=== PATIENT | female | born 2000 | race Hispanic/Latino ===

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

== ENCOUNTER 2025-02-12 12:51 | Outpatient (CLI) | payer OTHER, BC | END 2025-02-12 12:52 | disposition home or self-care (01) | LOC: CSHULT 12:51 | PROVIDERS: ATTEND Family Medicine | DX: O09.892 Supervision of other high risk pregnancies, second trimester (principal); Z3A.20 20 weeks gestation of pregnancy | CPT/HCPCS: 76805 ==